=== PATIENT | female | born 1990 | race Caucasian/White ===

== ENCOUNTER 2020-03-19 18:08 | Observation (INO) | payer BC, OTHER ==
[~2020-03-19] VITALS: Ht 165.1 cm; Wt 67.1 kg
[2020-03-19] MEDS ORDERED: LACTATED RINGERS 1,000 ML IV SCH (20:00)
[2020-03-19] MEDS ORDERED: PNV1TABL76 PO (21:33)
== END 2020-03-19 21:45 | disposition home or self-care (01) ==
LOC: 8 EST LDRP 18:08
PROVIDERS: ADMIT Obstetrics & Gynecology; ATTEND Obstetrics & Gynecology
DX: O42.913 Preterm premature rupture of membranes, unspecified as to length of time between rupture and onset of labor, third trimester (principal); Z3A.35 35 weeks gestation of pregnancy
CPT/HCPCS: 59025; 96360; 96361; G0378; 99281